=== PATIENT | male | born 1985 | race Caucasian/White ===

== ENCOUNTER 2022-05-16 11:20 | Emergency (ER) | payer OTHER ==
[2022-05-16] MEDS ORDERED: Boostrix 0.5 ML (Tdap) VIAL (>/=7 yrs of age) ONE (11:47)
== END 2022-05-16 11:52 | disposition home or self-care (01) ==
LOC: BURERS 11:20
DX: T81.49XA Infection following a procedure, other surgical site, initial encounter (principal)
CPT/HCPCS: 90471; 90715